=== PATIENT | male | born 1965 | race African-American/Black ===

== ENCOUNTER 2018-06-28 08:30 | Emergency (ER) | payer OTHER ==
--- NOTE | 2018-06-28 09:00 | EDM.PDOC ---
ED HPI GENERAL MEDICAL PROBLEM - General Chief Complaint: Upper Extremity Injury/Pain Stated Complaint: FINGER ON RT HAND IS INFECTED Time Seen by Provider: 06/28/18 08:38 - History of Present Illness INITIAL COMMENTS - FREE TEXT/NARRATIVE: HISTORY AND PHYSICAL: History of present illness: Patient's 52-year-old black male with a chief complaint of paronychia to the third digit of his right hand he's had pain and swelling over the last several days he denies fever chills nausea vomiting or other concerns is been no reported known trauma Review of systems: As per history of present illness and below otherwise all systems reviewed and negative. Past medical history: As per history of present illness and as reviewed below otherwise noncontributory. Surgical history: As per history of present illness and as reviewed below otherwise noncontributory. Social history: No reported history of drug or alcohol abuse. Family history: As per history of present illness and as reviewed below otherwise noncontributory. Physical exam: HEENT: Atraumatic, normocephalic, pupils reactive, negative for conjunctival pallor or scleral icterus, mucous membranes moist, throat clear, neck supple, nontender, trachea midline. Lungs: Clear to auscultation, breath sounds equal bilaterally, chest nontender. Heart: S1S2, regular, negative for clicks, rubs, or JVD. Abdomen: Soft, nondistended, nontender. Negative for masses or hepatosplenomegaly. Negative for costovertebral tenderness. Pelvis: Stable nontender. Genitourinary: Deferred. Rectal: Deferred. Extremities: Patient has a small area of fluctuance consistent with a paronychia at the nail base of the third digit of his right hand. Neuro: Awake, alert, oriented. Cranial nerves II through XII unremarkable. Cerebellum unremarkable. Motor and sensory unremarkable throughout. Exam nonfocal. Diagnostics: None Therapeutics: Patient was anesthetized with 1% lidocaine via digital block incision and drainage of paronychia with 11 blade scalpel was accomplished a small amount of pus and serosanguineous fluid was returned patient tolerated procedure well Impression: #1 paronychia status post incision and drainage third digit right hand Definitive disposition and diagnosis as appropriate pending reevaluation and review of above. Right 3-Middle finger Pain Score (Numeric/FACES): 2 - Related Data Allergies Allergy/AdvReac Type Severity Reaction Status Date / Time No Known Allergies Allergy Verified 06/28/18 08:52 Home Meds: Home Meds . [No Known Home Meds] 06/28/18 [History] Review of Systems - Review of Systems Review Of Systems: ROS reveals no pertinent complaints other than HPI. ED EXAM, GENERAL - Physical Exam Exam: See Below (dictation) Course - Vital Signs Last Recorded V/S: Last Vital Signs Temp 36.2 C 06/28/18 08:44 Pulse 77 06/28/18 08:44 Resp 16 06/28/18 08:44 BP 139/85 06/28/18 08:44 Pulse Ox 97 06/28/18 08:44 - Orders/Labs/Meds Meds: Medications Discontinued Medications Generic Name Dose Route Start Last Admin Trade Name Valeriano PRN Reason Stop Dose Admin Lidocaine HCl Confirm 06/28/18 08:53 Xylocaine-Mpf 1% Administered 06/28/18 08:54 Dose 5 mls @ as directed .ROUTE .STK-MED ONE Lidocaine HCl 5 ml 06/28/18 08:52 Xylocaine-Mpf 1% INJECT 06/28/18 08:53 ONETIME ONE Departure - Departure Time of Disposition: 08:59 Disposition: Home, Self-Care 01 Condition: Good Clinical Impression: Paronychia - Discharge Information *PRESCRIPTION DRUG MONITORING PROGRAM REVIEWED*: Not Applicable *COPY OF PRESCRIPTION DRUG MONITORING REPORT IN PATIENT PADMINI: Not Applicable Referrals: PCP,None [Primary Care Provider] - Additional Instructions: The following information is given to patients seen in the emergency department who are being discharged to home. This information is to outline your options for follow-up care. We provide all patients seen in our emergency department with a follow-up referral. The need for follow-up, as well as the timing and circumstances, are variable depending upon the specifics of your emergency department visit. If you don't have a primary care physician on staff, we will provide you with a referral. We always advise you to contact your personal physician following an emergency department visit to inform them of the circumstance of the visit and for follow-up with them and/or the need for any referrals to a consulting specialist. The emergency department will also refer you to a specialist when appropriate. This referral assures that you have the opportunity for followup care with a specialist. All of these measure are taken in an effort to provide you with optimal care, which includes your followup. Under all circumstances we always encourage you to contact your private physician who remains a resource for coordinating your care. When calling for followup care, please make the office aware that this follow-up is from your recent emergency room visit. If for any reason you are refused follow-up, please contact the [facility] emergency department at and asked to speak to the emergency department charge nurse. Warm water and hydrogen peroxide soak 3 times a day as directed 2 days Motrin/ Tylenol as directed Keflex as prescribed and return as needed as discussed
[2018-06-28] MEDS ORDERED: Bacitracin Oint 1 GM U/D Packet TOP ONE (09:06)
== END 2018-06-28 09:15 | disposition home or self-care (01) ==
LOC: MW.ED 08:30
DX: L03.011 Cellulitis of right finger (principal)
CPT/HCPCS: 10060; 99282; 99283